=== PATIENT | female | born 1960 | race Caucasian/White ===

== ENCOUNTER 2017-01-20 22:31 | Inpatient (IN) ==
[2017-01-21] MEDS ORDERED: ONDANSETRON 4 MG/2 ML VIAL IV PRN (00:50)
[2017-01-21] MEDS ORDERED: GLUCAGON 1 MG VIAL IM PRN (00:50)
[2017-01-21] MEDS ORDERED: DEXTROSE 50% 25 GM/50 ML VIAL IV PRN (00:50)
[2017-01-21] MEDS ORDERED: MORPHINE 2 MG/1 ML SYRINGE IV PRN (00:50)
[2017-01-21] MEDS ORDERED: ALBUTEROL 2.5 MG/3 ML NEB RESP TX PRN (00:53)
[2017-01-21] MEDS ORDERED: ALBUTEROL NEB SOLN 5 MG/ML 20 ML/BOTTLE CONT NEB ONE (00:56)
[2017-01-21] MEDS ORDERED: SODIUM CHLORIDE 0.9% 1,000 ML IV ONE (00:58)
[2017-01-21 01:32] LABS: Basophils % 0.3 % (0.0-0.8); Hematocrit 48.4 VOL% (35.7-47.0); Hemoglobin 15.4 GM/DL (12.0-16.0); Immature Granulocytes % 2.4 %; Immature Granulocytes Absolute 0.25 #; Lymphocytes # 1.1 10*3/uL (1.4-4.0); Lymphocytes % 10.2 % (21.3-54.2); Mean Corpuscular HGB Conc 31.8 GM/DL (32-36); Mean Corpuscular Hemoglobin 29 PG (27-34); Mean Corpuscular Volume 90.5 FL (87-102); Mean Platelet Volume 9.5 FL (9.6-12.0); Monocytes # 0.4 10*3/uL (0.11-0.8); NRBC # 0.04 10*3/uL; Neutrophils # 8.8 10*3/uL (1.4-7.4); Neutrophils % 83.1 % (38.7-73.9); Platelet Count 300 T/CUMM (130-400); Red Blood Count 5.35 MC/CUMM (3.8-5.5); Red Cell Distribution Width 14.6 % (9.3-17.3); White Blood Count 10.6 T/CUMM (4-12)
[2017-01-21 01:53] LABS: Apearance,Urine CLEAR (Clear); Bilirubin,Urine Negative (Negative); Blood, Urine Small mg/dL (Negative); Glucose,Urine (UA) >=500 mg/dL (Negative); Hyaline Casts,Urine 4 /LPF (0-3); Ketones,Urine Negative (Negative); Mucus,Urine Occasional /LPF (Occasional); Nitrite,Urine Negative (Negative); Protein,Urine Negative; RBC,Urine 1 /HPF (0-4); Squamous Epithelial Cell,Urine Occasional /HPF (0-10); Urine Color Yellow (Yellow); Urine Urobilinogen < 2.0 EU/DL (0.2-1.0)
[2017-01-21 02:03] LABS: Alanine Aminotransferase 20 U/L (13-56); Albumin 3.3 G/DL (3.4-5.0); Alkaline Phosphatase 79 U/L (45-117); Aspartate Amino Transferase 13 U/L (0-37); Bilirubin,Total < 0.39 MG/DL (0.2-1.0); Blood Urea Nitrogen 20 MG/DL (7-18); Calcium 7.9 MG/DL (8.5-10.1); Glucose 447 MG/DL (74-106); Magnesium 2.2 MG/DL (1.8-2.4); Osmolality,Calculated 289.2 MOS/KG (273-304); Potassium 4.3 MMOL/L (3.5-5.1); Sodium 134 MMOL/L (136-145); Total Protein 7.3 G/DL (6.4-8.3)
[2017-01-21] MEDS ORDERED: CALCIUM CHLORIDE 1,000 MG/10 ML SYRINGE IV ONE (02:21)
[2017-01-21] MEDS: SODIUM CHLORIDE 0.9% 1,000 ML IV SCH (03:56)
[2017-01-21] MEDS ORDERED: LORazepam 2 MG/1 ML VIAL IV ONE (03:58)
[2017-01-21] MEDS: LEVALBUTEROL 1.25 MG/3 ML NEB RESP TX SCH ×2 (05:05→07:54)
[2017-01-21 05:33] LABS: Giant Platelets Few; Hypochromasia Slight; Macrocytosis Slight; Platelet Estimate Adequate; Polychromasia Slight
[2017-01-21] MEDS: INSULIN REGULAR 100 UNIT/ML SUBCUT SCH ×2 (07:22→12:29)
[2017-01-21] MEDS ORDERED: methylPREDNISolone SOD SUC 125 MG/2 ML VIAL IV SCH (08:30)
[2017-01-21] MEDS: methylPREDNISolone SOD SUC 40 MG/1 ML VIAL IV SCH ×3 (08:56→23:00)
[2017-01-21] MEDS: DOCUSATE SODIUM 100 MG CAPSULE PO SCH ×2 (08:56→22:59)
[2017-01-21 08:58] LABS: ABG Base Excess 4.7 MMOL/L (-2.5-2.5); ABG HCO3 28.5 MMOL/L (20-26); ABG Oxygen Saturation 92.5 % (95-100); ABG PH 7.297 (7.35-7.45); ABG PO2 69.2 MM HG (80-95); Allen Test Positive; Pt O2 Delivery Device Venturi Mask
[2017-01-21] MEDS: LEVOFLOXACIN INJ 750 MG in PREMIX 1 EACH IV SCH (08:59)
[2017-01-21 09:24] LABS: ABG PCO2 70.5 MM HG (35-48)
[2017-01-21] MEDS: ALBUTEROL/IPRATROPIUM 3 ML NEB RESP TX SCH ×3 (11:28→19:47)
[2017-01-21] MEDS ORDERED: FUROSEMIDE 40 MG/4 ML VIAL IV ONE (11:30)
[2017-01-21] MEDS ORDERED: AMINOPHYLLINE 250 MG in SODIUM CHLORIDE 0.9% 100 ML IV ONE (12:00)
[2017-01-21] MEDS ORDERED: INSULIN REGULAR 100 UNIT/ML IV ONE (12:35)
[2017-01-21] MEDS: PIPERACILLIN/TAZOBACTAM 3,375 MG in SODIUM CHLORIDE 0.9% 100 ML IV SCH ×2 (12:48→22:00)
[2017-01-21] MEDS: LOSARTAN 50 MG TABLET PO SCH (12:56)
[2017-01-21] MEDS: CARVEDILOL 6.25 MG TABLET PO SCH ×2 (12:56→23:01)
[2017-01-21] MEDS: PARoxetine 20 MG TABLET PO SCH (12:57)
[2017-01-21] MEDS: POTASSIUM CHLORIDE 20 MEQ TABLET PO SCH (12:57)
[2017-01-21] MEDS ORDERED: INSULIN REGULAR DRIP 100 ML IV SCH (13:00)
[2017-01-21] MEDS: AMINOPHYLLINE 1,000 MG in SODIUM CHLORIDE 0.9% 460 ML IV SCH (13:04)
[2017-01-21 13:44] LABS: Troponin I Only 0.172 NG/ML (0.00-0.045)
[2017-01-21] MEDS: FUROSEMIDE 40 MG/4 ML VIAL IV SCH (16:24)
[2017-01-21] MEDS ORDERED: INSULIN NPH 100 UNIT/ML SUBCUT SCH (16:30)
[2017-01-21 20:41] LABS: Troponin I Only 0.154 NG/ML (0.00-0.045)
[2017-01-21] MEDS: ENOXAPARIN 40 MG/0.4 ML SYRINGE SUBCUT SCH (22:58)
[2017-01-21] MEDS: PANTOPRAZOLE 40 MG VIAL IV SCH (23:01)
[2017-01-22] MEDS: ALBUTEROL/IPRATROPIUM 3 ML NEB RESP TX SCH ×7 (00:28→20:56)
[2017-01-22 01:30] LABS: Basophils % 0.2 % (0.0-0.8); Hematocrit 44.2 VOL% (35.7-47.0); Hemoglobin 14.2 GM/DL (12.0-16.0); Immature Granulocytes % 1.5 %; Immature Granulocytes Absolute 0.26 #; Lymphocytes # 1.9 10*3/uL (1.4-4.0); Lymphocytes % 11.3 % (21.3-54.2); Mean Corpuscular HGB Conc 32.1 GM/DL (32-36); Mean Corpuscular Hemoglobin 29 PG (27-34); Mean Corpuscular Volume 89.5 FL (87-102); Mean Platelet Volume 9.8 FL (9.6-12.0); Monocytes % 6.2 % (1.7-12.7); NRBC # 0.02 10*3/uL; Neutrophils # 13.6 10*3/uL (1.4-7.4); Neutrophils % 80.8 % (38.7-73.9); Platelet Count 343 T/CUMM (130-400); Red Blood Count 4.94 MC/CUMM (3.8-5.5); Red Cell Distribution Width 14.6 % (9.3-17.3); White Blood Count 16.8 T/CUMM (4-12)
[2017-01-22 01:39] LABS: Troponin I Only 0.146 NG/ML (0.00-0.045)
[2017-01-22 02:18] LABS: Calcium 7.8 MG/DL (8.5-10.1); Magnesium 2.1 MG/DL (1.8-2.4)
[2017-01-22] MEDS ORDERED: LORazepam 2 MG/1 ML VIAL IV PRN (03:29)
[2017-01-22] MEDS: methylPREDNISolone SOD SUC 40 MG/1 ML VIAL IV SCH ×4 (04:07→20:46)
[2017-01-22] MEDS: INSULIN REGULAR 100 UNIT/ML SUBCUT SCH ×5 (04:07→20:44)
[2017-01-22] MEDS: PIPERACILLIN/TAZOBACTAM 3,375 MG in SODIUM CHLORIDE 0.9% 100 ML IV SCH ×2 (04:13→12:19)
[2017-01-22 04:14] LABS: Anisocytosis 1+; Macrocytosis 1+; Platelet Estimate Normal
[2017-01-22 04:38] LABS: ABG Base Excess 7.2 MMOL/L (-2.5-2.5); ABG Oxygen Saturation 57.8 % (95-100); ABG PCO2 65.9 MM HG (35-48); ABG PH 7.346 (7.35-7.45); ABG TCO2 31.5 MMOL/L (23-27); Allen Test Positive
[2017-01-22 04:43] LABS: ABG PO2 32.1 MM HG (80-95)
[2017-01-22] MEDS: AMINOPHYLLINE 1,000 MG in SODIUM CHLORIDE 0.9% 460 ML IV SCH (08:26)
[2017-01-22] MEDS ORDERED: INSULIN GLARGINE 100 UNIT/ML SUBCUT SCH (09:30)
[2017-01-22] MEDS: PARoxetine 20 MG TABLET PO SCH (09:40)
[2017-01-22] MEDS: DOCUSATE SODIUM 100 MG CAPSULE PO SCH ×2 (09:40→20:46)
[2017-01-22] MEDS: POTASSIUM CHLORIDE 20 MEQ TABLET PO SCH (09:40)
[2017-01-22] MEDS: CARVEDILOL 6.25 MG TABLET PO SCH (09:40)
[2017-01-22] MEDS: LOSARTAN 50 MG TABLET PO SCH ×2 (09:40→20:45)
[2017-01-22] MEDS: FUROSEMIDE 40 MG/4 ML VIAL IV SCH (09:42)
[2017-01-22] MEDS: LEVOFLOXACIN INJ 750 MG in PREMIX 1 EACH IV SCH (09:48)
[2017-01-22] MEDS ORDERED: ALBUTEROL 0.63 MG/3 ML NEB RESP TX PRN (10:45)
[2017-01-22] MEDS ORDERED: ALBUTEROL 0.63 MG/3 ML NEB RESP TX SCH (11:00)
[2017-01-22] MEDS ORDERED: INSULIN NPH 100 UNIT/ML SUBCUT SCH (16:30)
[2017-01-22] MEDS: ENOXAPARIN 40 MG/0.4 ML SYRINGE SUBCUT SCH (20:43)
[2017-01-22] MEDS: DILTIAZEM CD 240 MG CAPSULE PO SCH (20:45)
[2017-01-22] MEDS: PANTOPRAZOLE 40 MG VIAL IV SCH (20:45)
[2017-01-22] MEDS: clonazePAM 0.5 MG TABLET PO SCH (20:46)
[2017-01-23] MEDS: INSULIN REGULAR 100 UNIT/ML SUBCUT SCH ×8 (00:05→21:23)
[2017-01-23] MEDS: ALBUTEROL/IPRATROPIUM 3 ML NEB RESP TX SCH ×6 (00:24→19:30)
[2017-01-23] MEDS: AMINOPHYLLINE 1,000 MG in SODIUM CHLORIDE 0.9% 460 ML IV SCH ×2 (01:02→17:03)
[2017-01-23] MEDS: methylPREDNISolone SOD SUC 40 MG/1 ML VIAL IV SCH ×5 (03:32→23:29)
[2017-01-23 03:55] LABS: ABG Base Excess 10.1 MMOL/L (-2.5-2.5); ABG HCO3 33.7 MMOL/L (20-26); ABG Oxygen Saturation 94.1 % (95-100); ABG PH 7.341 (7.35-7.45); ABG PO2 71.2 MM HG (80-95); ABG TCO2 34.5 MMOL/L (23-27); Allen Test Positive; Pt O2 Delivery Device BIPAP
[2017-01-23 04:11] LABS: ABG PCO2 73.7 MM HG (35-48)
[2017-01-23 05:24] LABS: Basophils % 0.1 % (0.0-0.8); Hemoglobin 14.2 GM/DL (12.0-16.0); Immature Granulocytes % 1.1 %; Immature Granulocytes Absolute 0.18 #; Lymphocytes # 1.6 10*3/uL (1.4-4.0); Lymphocytes % 10.2 % (21.3-54.2); Mean Corpuscular HGB Conc 32.3 GM/DL (32-36); Mean Corpuscular Hemoglobin 29 PG (27-34); Mean Corpuscular Volume 89.8 FL (87-102); Mean Platelet Volume 9.8 FL (9.6-12.0); Monocytes % 6.2 % (1.7-12.7); Neutrophils % 82.4 % (38.7-73.9); Platelet Count 359 T/CUMM (130-400); Red Cell Distribution Width 14.6 % (9.3-17.3); White Blood Count 15.7 T/CUMM (4-12)
[2017-01-23 05:50] LABS: Hypochromasia 1+
[2017-01-23 05:51] LABS: Microcytosis Slight; Platelet Estimate Increased; Polychromasia Slight
[2017-01-23 06:01] LABS: Calcium 8.3 MG/DL (8.5-10.1); Magnesium 2.6 MG/DL (1.8-2.4); Osmolality,Calculated 284.1 MOS/KG (273-304); Potassium 4.5 MMOL/L (3.5-5.1)
[2017-01-23] MEDS: LEVOFLOXACIN INJ 750 MG in PREMIX 1 EACH IV SCH (08:42)
[2017-01-23] MEDS: DILTIAZEM CD 240 MG CAPSULE PO SCH ×2 (08:43→21:22)
[2017-01-23] MEDS: LOSARTAN 50 MG TABLET PO SCH ×2 (08:43→21:23)
[2017-01-23] MEDS: POTASSIUM CHLORIDE 20 MEQ TABLET PO SCH (08:43)
[2017-01-23] MEDS: INSULIN GLARGINE 100 UNIT/ML SUBCUT SCH (08:43)
[2017-01-23] MEDS: PARoxetine 20 MG TABLET PO SCH (08:43)
[2017-01-23] MEDS: DOCUSATE SODIUM 100 MG CAPSULE PO SCH ×2 (08:43→21:23)
[2017-01-23] MEDS: FUROSEMIDE 40 MG/4 ML VIAL IV SCH ×2 (08:43→12:34)
[2017-01-23] MEDS: SODIUM CHLORIDE 0.9% 1,000 ML IV SCH (12:35)
[2017-01-23] MEDS: clonazePAM 0.5 MG TABLET PO SCH (21:23)
[2017-01-23] MEDS: ENOXAPARIN 40 MG/0.4 ML SYRINGE SUBCUT SCH (21:23)
[2017-01-23] MEDS: PANTOPRAZOLE 40 MG VIAL IV SCH (21:24)
[2017-01-24] MEDS: ALBUTEROL/IPRATROPIUM 3 ML NEB RESP TX SCH ×7 (00:17→23:00)
[2017-01-24] MEDS: INSULIN REGULAR 100 UNIT/ML SUBCUT SCH ×10 (01:13→21:05)
[2017-01-24 03:34] LABS: Allen Test Positive; Pt O2 Delivery Device BIPAP
[2017-01-24 03:35] LABS: ABG Base Excess 11.3 MMOL/L (-2.5-2.5); ABG HCO3 34.5 MMOL/L (20-26); ABG Oxygen Saturation 77.8 % (95-100); ABG PH 7.356 (7.35-7.45); ABG PO2 43.4 MM HG (80-95); ABG TCO2 35.5 MMOL/L (23-27)
[2017-01-24 03:39] LABS: ABG PCO2 73.4 MM HG (35-48)
[2017-01-24 06:23] LABS: Basophils % 0.1 % (0.0-0.8); Hematocrit 45.2 VOL% (35.7-47.0); Hemoglobin 14.4 GM/DL (12.0-16.0); Immature Granulocytes % 1.3 %; Immature Granulocytes Absolute 0.15 #; Lymphocytes # 0.8 10*3/uL (1.4-4.0); Mean Corpuscular HGB Conc 31.9 GM/DL (32-36); Mean Corpuscular Hemoglobin 28 PG (27-34); Mean Platelet Volume 9.3 FL (9.6-12.0); Monocytes # 0.5 10*3/uL (0.11-0.8); Monocytes % 4.7 % (1.7-12.7); Neutrophils % 86.9 % (38.7-73.9); Platelet Count 305 T/CUMM (130-400); Red Blood Count 5.08 MC/CUMM (3.8-5.5); Red Cell Distribution Width 14.1 % (9.3-17.3); White Blood Count 11.5 T/CUMM (4-12)
[2017-01-24] MEDS: methylPREDNISolone SOD SUC 40 MG/1 ML VIAL IV SCH ×3 (06:26→21:39)
[2017-01-24 06:49] LABS: Calcium 8.1 MG/DL (8.5-10.1); Potassium 4.3 MMOL/L (3.5-5.1)
[2017-01-24] MEDS: FUROSEMIDE 40 MG/4 ML VIAL IV SCH (08:53)
[2017-01-24] MEDS: PARoxetine 20 MG TABLET PO SCH (08:56)
[2017-01-24] MEDS: DOCUSATE SODIUM 100 MG CAPSULE PO SCH ×2 (08:56→21:07)
[2017-01-24] MEDS: DILTIAZEM CD 240 MG CAPSULE PO SCH ×2 (08:56→21:05)
[2017-01-24] MEDS: POTASSIUM CHLORIDE 20 MEQ TABLET PO SCH (08:56)
[2017-01-24] MEDS: LOSARTAN 50 MG TABLET PO SCH ×2 (08:56→21:07)
[2017-01-24] MEDS: INSULIN GLARGINE 100 UNIT/ML SUBCUT SCH (08:57)
[2017-01-24] MEDS: LEVOFLOXACIN INJ 750 MG in PREMIX 1 EACH IV SCH (09:29)
[2017-01-24] MEDS: PANTOPRAZOLE 40 MG VIAL IV SCH (21:05)
[2017-01-24] MEDS: clonazePAM 0.5 MG TABLET PO SCH (21:05)
[2017-01-24] MEDS: ENOXAPARIN 40 MG/0.4 ML SYRINGE SUBCUT SCH (21:07)
[2017-01-25] MEDS: INSULIN REGULAR 100 UNIT/ML SUBCUT SCH ×10 (00:21→20:48)
[2017-01-25] MEDS: ALBUTEROL/IPRATROPIUM 3 ML NEB RESP TX SCH ×6 (03:30→23:54)
[2017-01-25] MEDS ORDERED: INSULIN GLARGINE 100 UNIT/ML SUBCUT SCH (09:00)
[2017-01-25] MEDS: DOCUSATE SODIUM 100 MG CAPSULE PO SCH ×2 (09:20→20:49)
[2017-01-25] MEDS: POTASSIUM CHLORIDE 20 MEQ TABLET PO SCH (09:20)
[2017-01-25] MEDS: DILTIAZEM CD 240 MG CAPSULE PO SCH ×2 (09:20→20:48)
[2017-01-25] MEDS: LOSARTAN 50 MG TABLET PO SCH ×2 (09:20→20:48)
[2017-01-25] MEDS: FUROSEMIDE 40 MG/4 ML VIAL IV SCH (09:20)
[2017-01-25 09:56] LABS: Calcium 8.9 MG/DL (8.5-10.1); Magnesium 2.7 MG/DL (1.8-2.4); Potassium 4.6 MMOL/L (3.5-5.1)
[2017-01-25] MEDS: PARoxetine 20 MG TABLET PO SCH (09:56)
[2017-01-25] MEDS: THEOPHYLLINE ER (24 HR) 300 MG CAPSULE PO SCH (09:56)
[2017-01-25] MEDS: LEVOFLOXACIN INJ 750 MG in PREMIX 1 EACH IV SCH (10:20)
[2017-01-25] MEDS: methylPREDNISolone SOD SUC 40 MG/1 ML VIAL IV SCH (10:21)
[2017-01-25] MEDS ORDERED: methylPREDNISolone SOD SUC 40 MG/1 ML VIAL IV SCH (11:00)
[2017-01-25] MEDS: PANTOPRAZOLE 40 MG VIAL IV SCH (20:46)
[2017-01-25] MEDS: ENOXAPARIN 40 MG/0.4 ML SYRINGE SUBCUT SCH (20:48)
[2017-01-25] MEDS: clonazePAM 0.5 MG TABLET PO SCH (20:48)
[2017-01-26] MEDS: INSULIN REGULAR 100 UNIT/ML SUBCUT SCH ×10 (00:15→20:49)
[2017-01-26] MEDS: ALBUTEROL/IPRATROPIUM 3 ML NEB RESP TX SCH ×5 (03:26→19:21)
[2017-01-26] MEDS: POTASSIUM CHLORIDE 20 MEQ TABLET PO SCH (09:14)
[2017-01-26] MEDS: PARoxetine 20 MG TABLET PO SCH (09:15)
[2017-01-26] MEDS: DOCUSATE SODIUM 100 MG CAPSULE PO SCH ×2 (09:15→20:50)
[2017-01-26] MEDS: DILTIAZEM CD 240 MG CAPSULE PO SCH ×2 (09:15→20:50)
[2017-01-26] MEDS: LOSARTAN 50 MG TABLET PO SCH ×2 (09:15→20:50)
[2017-01-26] MEDS: THEOPHYLLINE ER (24 HR) 300 MG CAPSULE PO SCH (09:16)
[2017-01-26] MEDS: LEVOFLOXACIN 500 MG TABLET PO SCH (09:16)
[2017-01-26] MEDS: FUROSEMIDE 40 MG/4 ML VIAL IV SCH (09:18)
[2017-01-26] MEDS: INSULIN GLARGINE 100 UNIT/ML SUBCUT SCH (09:25)
[2017-01-26] MEDS: predniSONE 20 MG TABLET PO SCH (09:29)
[2017-01-26] MEDS: ENOXAPARIN 40 MG/0.4 ML SYRINGE SUBCUT SCH (20:48)
[2017-01-26] MEDS: clonazePAM 0.5 MG TABLET PO SCH (20:50)
[2017-01-26] MEDS: PANTOPRAZOLE 40 MG VIAL IV SCH (21:50)
[2017-01-27] MEDS: ALBUTEROL/IPRATROPIUM 3 ML NEB RESP TX SCH ×4 (00:41→11:00)
[2017-01-27] MEDS: INSULIN REGULAR 100 UNIT/ML SUBCUT SCH ×6 (02:33→12:32)
[2017-01-27] MEDS: INSULIN GLARGINE 100 UNIT/ML SUBCUT SCH (09:04)
[2017-01-27] MEDS: predniSONE 20 MG TABLET PO SCH (09:06)
[2017-01-27] MEDS: DOCUSATE SODIUM 100 MG CAPSULE PO SCH (09:06)
[2017-01-27] MEDS: PARoxetine 20 MG TABLET PO SCH (09:06)
[2017-01-27] MEDS: LEVOFLOXACIN 500 MG TABLET PO SCH (09:06)
[2017-01-27] MEDS: THEOPHYLLINE ER (24 HR) 300 MG CAPSULE PO SCH (09:06)
[2017-01-27] MEDS: DILTIAZEM CD 240 MG CAPSULE PO SCH (09:07)
[2017-01-27] MEDS: LOSARTAN 50 MG TABLET PO SCH (09:07)
[2017-01-27] MEDS: POTASSIUM CHLORIDE 20 MEQ TABLET PO SCH (09:07)
[2017-01-27] MEDS: FUROSEMIDE 40 MG/4 ML VIAL IV SCH (09:12)
[2017-01-27 12:42] VITALS: BP 116/57
== END 2017-01-27 14:32 | disposition home or self-care (01) | DRG 291 ==
LOC: SUATTDRO 01-21 00:05 → N.CC 01-21 00:05 → N.5E 01-23 12:49
PROVIDERS: ADMIT Internal Medicine Infectious Disease; ATTEND Internal Medicine